=== PATIENT | male | born 1980 | race Caucasian/White ===

== ENCOUNTER 2017-10-23 13:03 | Inpatient (IN) | payer OTHER ==
[2017-10-23 13:28] VITALS: BMI 29.5
--- NOTE | 2017-10-23 14:31 | PDOC ---
History of Present Illness - General Chief Complaint: Alcohol intoxication Stated Complaint: INTOX Time Seen by Provider: 10/23/17 14:04 History Source: Patient Exam Limitations: Intoxication (Pt reports acute EtOH abuse.) - History of Present Illness Initial Comments: 37 y/o male presenting to [facility] ER complaining of abdominal pain and requesting detox for EtOH abuse. Abdominal pain is localized to RUQ, LUQ, and epigastric region. It is acute on chronic for the past four weeks without change. Chest pain that is constant and unchanged for the past several years. Pt endorses hematemesis and rectal bleeding during this period. Believes he may have passed out once yesterday while on the street. Long history of EtOH abuse with >10 beers per day, everyday. Denies tobacco or illicit drug use. Was evaluated at [facility] ER and discharged; pt unable to recall workup or results. Pt endorses drinking approx. 6 beers this morning prior to arrival. On secondary interview, pt reports active suicidal ideation with access and plan to use firearms. States he became depressed 4-5 years ago after both of his brothers from EtOH abuse. Further depressed mood in the past few days after pts girlfriend ended the relationship after cheating. PCP: None Medical Hx: - Pt denies past medical history or active prescription medications. Surgical Hx: - Pt denies past surgical history. Past History - Past Medical History Allergies/Adverse Reactions: Allergies Allergy/AdvReac Type Severity Reaction Status Date / Time No Known Allergies Allergy Verified 10/23/17 13:29 Home Medications: Ambulatory Orders NK [No Known Home Medication] 10/23/17 COPD: No - Suicide/Smoking/Psychosocial Hx Smoking History: Unknown if ever smoked Hx Alcohol Use: Yes (daily) Substance Use Type: Alcohol Review of Systems - Review of Systems Able to Perform ROS?: Yes Is the patient limited German proficient: No Constitutional: No: Chills, Diaphoresis, Fever HEENTM: No: Recent change in vision, Difficulty Swallowing Respiratory: No: Shortness of Breath Cardiac (ROS): Yes: See HPI, Chest Pain (Chronic left sided pain for 5 years), Syncope. No: Lightheadedness, Palpitations ABD/GI: Yes: See HPI, Rectal Bleeding, Vomiting, Abdominal cramping. No: Constipated, Diarrhea, Difficulty Swallowing : No: Burning, Dysuria, Flank Pain, Hematuria Musculoskeletal: No: Back Pain Integumentary: Yes: Bruising Psychiatric: Yes: Depression, Stressors Hematologic/Lymphatic: Yes: Easy Bruising. No: Easy Bleeding *Physical Exam - Vital Signs Last Vital Signs Temp Pulse Resp BP Pulse Ox 97.9 F 93 H 18 125/83 98 10/23/17 13:27 10/23/17 13:27 10/23/17 13:27 10/23/17 13:10/23/17 13:27 - Physical Exam Comments: Constitutional: Well-developed, well-nourished, non-toxic, obese male in no acute life threat. Found sitting upright in hospital chair. Alert and oriented x4. Answered questions with occasional circuitous answers. Speech is slurred. No bleeding on body or clothing. Head: Normocephalic. No obvious external signs of trauma. No periorbital ecchymosis or Battles sign. Eyes: PERRL. Lateral nystagmus. Sclerae white, no icterus. Conjunctiva moist and not injected. Ears: Hearing grossly intact. Nose: No nasal discharge. Mouth: Oral cavity and pharynx normal. No blood noted in cavity. No inflammation , swelling, exudate, or lesions. Neck: Supple, trachea is midline. Chest / Cardiovascular: Regular rate and regular rhythm. No murmur, rubs, clicks, or gallops. Peripheral pulses: Radial pulses full. No chest wall tenderness to palpation. Respiratory: Breathing unlabored. Equal chest rise and fall. Clear to auscultation bilaterally. No stridor, no wheezing, no rhonchi. Gastrointestinal: abdomen is non-distended but tender in RUQ, LUQ, and epigastric region without rebound or guarding. Possible hepatomegaly but exam technically limited by body habitus. No pulsatile masses. No overlying skin lesions or obvious signs of trauma. Neuro: Alert and oriented. Moving all four extremities spontaneously. No asterixis. Non-tremulus. Gait normal. Skin: Warm, dry, and intact. Psych: Affect: appropriate. Mood: depressed. Pt tearful at multiple points during interview. MALE RECTAL: Stool non-bloody and non-melanotic. Hemoccult card negative. Good sphincter tone with no anal, perineal or rectal lesions. Prostate is not tender , enlarged, boggy, or nodular. RN chaperoned exam. ED Treatment Course - LABORATORY CBC & Chemistry Diagram: 10/23/17 15:36 10/23/17 15:23 Medical Decision Making - Medical Decision Making *Reviewed nursing notes and prior visit documentation. 37 y/o male complaining of EtOH intoxication, abdominal pain, and acute SI. Reported hematemesis and rectal bleeding in setting of termination clerk EtOH abuse. Afebrile. Vitals unremarkable for hypotension or tachycardia. Physical exam as described. Suspect possible hepatic cirrhosis versus hepatitis versus esophageal varices versus anika ray tear versus gastritis. Low suspicion for ACS. Will obtain CBC, CMP, Troponin, EKG, CXR, Alcohol, ethylene glycol, and hemoccult card. Ordered protonix for symptom relief. Pt placed on 1 to 1 observation for acute SI. EKG: Sinus rhythm at a ventricular rate of 88 bpm. Normal axis. Normal intervals. No ST segment elevation or depression. No hyperacute T waves. No pathologic Q waves. Alcohol level: 340 CBC revealed H/H elevated to 17.9/51. Suspect secondary to dehydration. Will administer NS IVFB. CMP revealed no electrolyte derangement and mildly elevated LFTs (not 2:1 ratio) . Troponin not elevated. Hemoccult card negative. Low suspicion for active GI bleed, however story remains concerning for recent bleed given EtOH abuse history and reported symptoms. 17:53 Page sent to for Dr. Meza for admission for SI, EtOH intoxication, and possible GI bleed. 18:[address] Meza inpatient status on med-surg. Consult placed in [facility] for psychiatric consultation. *DC/Admit/Observation/Transfer Diagnosis at time of Disposition: Suicidal ideation Alcohol intoxication Qualifiers: Complication of substance-induced condition: with unspecified complication Qualified Code(s): F10.929 - Alcohol use, unspecified with intoxication, unspecified - Discharge Dispostion Condition at time of disposition: Fair Decision to Admit order: Yes - Referrals - Patient Instructions - Post Discharge Activity
[2017-10-23] MEDS ORDERED: PANTOPRAZOLE SODIUM 40 MG VIAL IVPUSH ONE (14:35)
[2017-10-23] MEDS ORDERED: PANTOPRAZOLE SODIUM 40 MG VIAL ONE (15:11)
[2017-10-23 15:55] LABS: BASO % 0.7 % (0-2.0); EOS % 0.5 % (0-4.5); HEMATOCRIT 51.5 % (35.4-49); HEMOGLOBIN 17.9 GM/dL (11.7-16.9); LYMPH % 37.5 % (8-40); MCH 30.2 pg (25.7-33.7); MCHC 34.7 g/dl (32.0-35.9); MEAN PLT VOLUME 9.3 fl (7.5-11.1); MONO % 3.5 % (3.8-10.2); NEUT % 57.8 % (42.8-82.8); PLATELET COUNT 206 K/MM3 (134-434); RBC 5.92 M/mm3 (4.00-5.60); RDW 13.3 % (11.9-15.9); WHITE BLOOD COUNT 5.4 K/mm3 (4.0-10.0)
--- NOTE | 2017-10-23 15:56 | PDOC ---
Attending Attestation - Resident Resident Name: Regino Velarde - ED Attending Attestation I have performed the following: I have examined & evaluated the patient, The case was reviewed & discussed with the resident, I agree w/resident's findings & plan, Exceptions are as noted - HPI HPI: 37 yo M history alcohol abuse presents after recent heavy alcohol use, c/o upper abd pain, stating he has been vomiting and noticed it was blood-tinged. Also states he had rectal bleeding. Limited history, patient intoxicated on presentation. During one interview he reported active SI with plan. - Physicial Exam PE: GENERAL: Awake, alert, and oriented to person and place, in no acute distress. + AOB. HEAD: No signs of trauma EYES: PERRLA, EOMI, sclera anicteric, conjunctiva clear ENT: Auricles normal inspection, hearing grossly normal, nares patent, oropharynx clear without exudates. Moist mucosa NECK: Normal ROM, supple, no lymphadenopathy, JVD, or masses LUNGS: Breath sounds equal, clear to auscultation bilaterally. No wheezes, and no crackles HEART: Regular rate and rhythm, normal S1 and S2, no murmurs, rubs or gallops ABDOMEN: Soft, nontender, normoactive bowel sounds. No guarding, no rebound. No masses EXTREMITIES: Normal range of motion, no edema. No clubbing or cyanosis. No cords, erythema, or tenderness NEUROLOGICAL: Cranial nerves II through XII grossly intact. Normal speech. Motor and sensation intact. Gait not tested due to intoxication. SKIN: Warm, Dry, normal turgor, no rashes or lesions noted. - Medical Decision Making Pt with alcohol intox, stating he had recent GI bleeding and has active SI. Stool occult blood test is negative, hemoglobin wnl. Will place on obs for reported SI as well as report of GI bleed, will monitor.
[2017-10-23 16:08] LABS: ALBUMIN 4.5 g/dl (3.4-5.0); ALK PHOS 115 U/L (45-117); ANION GAP 11 MMOL/L (8-16); BILIRUBIN,TOTAL 0.4 mg/dL (0.2-1.0); BLOOD UREA NITROGEN 10 mg/dL (7-18); CHLORIDE 107 mmol/L (98-107); CO2 24 mmol/L (21-32); CREATININE 0.8 mg/dL (0.7-1.3); GLUCOSE,RANDOM 120 mg/dL (74-106); POTASSIUM 4.1 mmol/L (3.5-5.1); SGOT/AST 67 U/L (15-37); SGPT/ALT 86 U/L (12-78); SODIUM 142 mmol/L (136-145); TOT PROT 8.6 g/dl (6.4-8.2)
[2017-10-23] MEDS ORDERED: LACTATED RINGERS SOLUTION 1000 ML INFUS.BAG IV STA (17:54)
--- NOTE | 2017-10-23 19:11 | HP ---
Admitting History and Physical - Primary Care Physician PCP: Yolanda Meza - Admission History of Present Illness: 37 y/o male presenting to [facility] ER complaining of abdominal pain and requesting detox for EtOH abuse. Abdominal pain is localized to RUQ, LUQ, and epigastric region. It is acute on chronic for the past four weeks without change. Chest pain that is constant and unchanged for the past several years. Pt endorses hematemesis and rectal bleeding during this period. Believes he may have passed out once yesterday while on the street. Long history of EtOH abuse with >10 beers per day, everyday. Denies tobacco or illicit drug use. Was evaluated at [facility] ER and discharged; pt unable to recall workup or results. - Smoking History Smoking history: Unknown if ever smoked - Alcohol/Substance Use Hx Alcohol Use: Yes (daily) Home Medications - Allergies Allergies/Adverse Reactions: Allergies Allergy/AdvReac Type Severity Reaction Status Date / Time No Known Allergies Allergy Verified 10/23/17 13:29 - Home Medications Home Medications: Ambulatory Orders NK [No Known Home Medication] 10/23/17 Physical Examination Vital Signs: Vital Signs Temperature 97.9 F 10/23/17 13:27 Pulse Rate 93 H 10/23/17 13:27 Respiratory Rate 18 10/23/17 13:27 Blood Pressure 125/83 10/23/17 13:27 O2 Sat by Pulse Oximetry (%) 98 10/23/17 13:27 Constitutional: Yes: Anxious HENT: Yes: Atraumatic Neck: Yes: Supple Cardiovascular: Yes: Regular Rate and Rhythm Respiratory: Yes: CTA Bilaterally Gastrointestinal: Yes: Normal Bowel Sounds Extremities: Yes: WNL Neurological: Yes: Alert, Oriented Labs: CBC, BMP 10/23/17 15:36 10/23/17 15:23 Problem List - Problems (1) Alcohol intoxication Assessment/Plan: on librium protocol Code(s): F10.929 - ALCOHOL USE, UNSPECIFIED WITH INTOXICATION, UNSPECIFIED Qualifiers: Complication of substance-induced condition: with unspecified complication Qualified Code(s): F10.929 - Alcohol use, unspecified with intoxication, unspecified (2) Suicidal ideation Assessment/Plan: cleared by psych was on 1:1 Code(s): R45.851 - SUICIDAL IDEATIONS Assessment/Plan Laboratory Tests 10/23/17 10/23/17 10/23/17 15:23 15:36 15:36 WBC 5.4 RBC 5.92 H Hgb 17.9 H Hct 51.5 H MCV 87.0 MCH 30.2 MCHC 34.7 RDW 13.3 Plt Count 206 MPV 9.3 Absolute Neuts (auto) 3.1 Neutrophils % 57.8 Lymphocytes % 37.5 Monocytes % 3.5 L Eosinophils % 0.5 Basophils % 0.7 Nucleated RBC % 0 Sodium 142 Potassium 4.1 Chloride 107 Carbon Dioxide 24 Anion Gap 11 BUN 10 Creatinine 0.8 Creat Clearance w eGFR > 60 Random Glucose 120 H Calcium 9.0 Total Bilirubin 0.4 AST 67 H ALT 86 H Alkaline Phosphatase 115 Troponin I Total Protein 8.6 H Albumin 4.5 Stool Occult Blood Negative Alcohol, Quantitative 10/23/17 15:36 WBC RBC Hgb Hct MCV MCH MCHC RDW Plt Count MPV Absolute Neuts (auto) Neutrophils % Lymphocytes % Monocytes % Eosinophils % Basophils % Nucleated RBC % Sodium Potassium Chloride Carbon Dioxide Anion Gap BUN Creatinine Creat Clearance w eGFR Random Glucose Calcium Total Bilirubin AST ALT Alkaline Phosphatase Troponin I < 0.02 Total Protein Albumin Stool Occult Blood Alcohol, Quantitative 340.08 H* Active Medications Generic Name Dose Route Start Last Admin Trade Name Freq PRN Reason Stop Dose Admin Chlordiazepoxide HCl 25 mg 10/25/17 11:00 10/25/17 16:39 Librium - PO 10/26/17 05:01 25 mg [id number] LUIS Administration Chlordiazepoxide HCl 15 mg 10/26/17 11:00 Librium - PO 10/27/17 05:01 [id number] LUIS Chlordiazepoxide HCl 25 mg 10/24/17 11:09 Librium - PO 10/27/17 11:08 Q4H PRN WITHDRAWAL(CONT SUBST) Chlordiazepoxide HCl 10 mg 10/27/17 11:00 Librium - PO 10/28/17 05:01 [id number] LUIS Sodium Chloride 2 spray 10/25/17 22:00 [place] Nasal [place] - NS BID LUIS
[2017-10-23] MEDS ORDERED: LORazepam 2 MG/ML SDV VIAL IVPUSH PRN (20:21)
[2017-10-23] MEDS ORDERED: LORazepam 2 MG/ML SDV VIAL ONE (20:36)
[2017-10-24] MEDS ORDERED: PNEUMOC 13-VAL CONJ-DIP CRM/PF 0.5 ML DISP.SYRIN IM ONE (07:07)
[2017-10-24 07:29] LABS: BASO % 0.3 % (0-2.0); EOS % 0.7 % (0-4.5); HEMATOCRIT 48.6 % (35.4-49); HEMOGLOBIN 16.2 GM/dL (11.7-16.9); LYMPH % 26.4 % (8-40); MCHC 33.3 g/dl (32.0-35.9); MEAN CELL VOLUME 87.1 fl (80-96); MEAN PLT VOLUME 9.2 fl (7.5-11.1); MONO % 4.6 % (3.8-10.2); PLATELET COUNT 172 K/MM3 (134-434); RBC 5.58 M/mm3 (4.00-5.60); RDW 13.5 % (11.9-15.9)
[2017-10-24 08:14] LABS: ALBUMIN 4.1 g/dl (3.4-5.0); ALK PHOS 79 U/L (45-117); ANION GAP 13 MMOL/L (8-16); BILIRUBIN,TOTAL 0.8 mg/dL (0.2-1.0); BLOOD UREA NITROGEN 9 mg/dL (7-18); CALCIUM 8.7 mg/dL (8.5-10.1); CHLORIDE 104 mmol/L (98-107); CO2 24 mmol/L (21-32); CREATININE 0.8 mg/dL (0.7-1.3); GLUCOSE,RANDOM 109 mg/dL (74-106); POTASSIUM 3.9 mmol/L (3.5-5.1); SGOT/AST 52 U/L (15-37); SGPT/ALT 74 U/L (12-78); SODIUM 141 mmol/L (136-145); TOT PROT 7.9 g/dl (6.4-8.2)
[2017-10-24] MEDS ORDERED: PNEUMOCOCCAL 23 VACCINE 0.5 ML VIAL IM ONE (10:00)
--- NOTE | 2017-10-24 11:06 | CON.PSY ---
Psychiatry Consult Chief Complaint: 37 year old male admitted with Alcihol intoxication and history og Alcohol abuse. patient apparantly told staff that he weanted to kill himself. sanjay is akert and makes good eye contact and denies any suicidal ideas or plans> i feel thatbway when I am drunk and I said that to get attention > I never tried to kill my self> I want haelp and weant to go to Rehab. patient is worried about his blood test results. Worried about his health> Obviously not intending to kill himself. Symptoms: reports: Depressed Mood - Previous Psychiatric Treatment Outpatient: None Inpatient: None - Previous Substance Abuse Treatment Outpatient: None Inpatient: None - Current Medications Current Medications: Active Medications Lorazepam (Ativan Injection -) 1 mg IVPUSH DAILY PRN PRN Reason: ANXIETY Stop: 10/24/17 20:20 Last Admin: 10/23/17 20:40 Dose: 1 mg - Allergies Allergies: Allergies Allergy/AdvReac Type Severity Reaction Status Date / Time No Known Allergies Allergy Verified 10/23/17 13:29 - Current Living Status Usual Living Arrangement: With Significant Other - Current Mental Status Evaluation Appearance: Disheveled Attitude: Cooperative - Affect Affect: Constrictive Appropriateness: Appropriate to Content - Mood Mood: Anxious - Speech/Language Expressive: Coherent - Psychomotor Activity Psychomotor Activity: Hyperactive - Thought Process Thought Process: Intact - Thought Content Delusions: Absent - Self Perception Self Perception: No Impairment - Cognition Attention: Alert Orientation: Time Memory, Immediate Recall: Intact Memory, Short Term: 3/3 Memory, Remote with Promptin/3 - Concentration Serial Sevens Intact: No Simple Calculations Intact: Yes - Abstraction Proverb Interpretation: Intact Judgement: Minimally Impaired - Insight Insight: Impaired - Impulse Control Impulse Control: Minimally Impaired - Suicidal Ideation Suicidal Ideation: No - Homicidal Ideation Homicidal Ideation: No Assessment/Plan 1) Patient is not suicidal and d/c. 2) D/C 1:1. 3) DEtox 4) Patient is willing to go to a rehab.
[2017-10-24] MEDS ORDERED: chlordiazePOXIDE HCL 25 MG CAPSULE PO PRN (11:09)
[2017-10-24] MEDS: chlordiazePOXIDE HCL 25 MG CAPSULE PO SCH ×3 (12:19→22:12)
--- NOTE | 2017-10-24 16:01 | CONSULT ---
Consult Detox [facility] Reason for Current Admission/Consult: alcohol use - History History of Present Illness: Pt states he was drinking heavily from age [age]. Stopped for about 10 years and restarted drinking when his brother a few years ago- usually drinks a few 24 ounces of beer a day. For the last 7 days- pt states he has been binge drinking- all day and night- about 10--24 ounces of beer. Pt lives with his sister in [place] but works in a [employer] in [employer]. Pt denies suicidal thoughts- says never been suicidal , thinks he was intoxicated when he expressed self injury. No h/o of seizures or DT's. Pt states he feels fine on librium protocol. - History Source History Provided By: Patient Limitations to Obtaining History: No Limitations - Alcohol/Substance Use Hx Alcohol Use: Yes (daily) CIWA Score - CIWA Score Nausea/Vomitin-No Nausea/No Vomiting Muscle Tremors: 1-None Visible, but [place] Anxiety: 1-Mildly Anxious Agitation: 0-Normal Activity Paroxysmal Sweats: No Perspiration Orientation: 0-Oriented Tacttile Disturbances: 0-None Auditory Disturbances: 0-None Visual Disturbances: 0-None Headache: 0-None Present CIWA-Ar Total Score: 2 Assessment Plan - Plan Plan: Pt agreeable to detox- but does not want to miss work. Wants to go home. Pt also expressed concern as he does not have health insurance to pay for his hospital stay. Pt would like to get his personal belongings. Pt denies suicidal thought/ideations. d/w pt at length about [facility]: detox and rehab. Also d/w pt options for medications assisted treatment for alcohol and educational resources. Please call me if I can be of further assistance: [phone]. - Medication Detox Regimen/Protocol: Librium
--- NOTE | 2017-10-24 17:16 | EKG ---
Test Reason : Blood Pressure : / mmHG Vent. Rate : 088 BPM Atrial Rate : 088 BPM P-R Int : 176 ms QRS Dur : 092 ms QT Int : 354 ms P-R-T Axes : 055 049 042 degrees QTc Int : 428 ms NORMAL SINUS RHYTHM NORMAL ECG NO PREVIOUS ECGS AVAILABLE Confirmed by MD JG, YUNIOR ([id number]) on 10/24/2017 5:16:16 PM Referred By: Confirmed By:YUNIOR GREGORIO MD
--- NOTE | 2017-10-24 18:31 | PN ---
Progress Note, Physician - Current Medication List Current Medications: Active Medications Chlordiazepoxide HCl (Librium -) 50 mg PO [id number] LUIS Stop: 10/25/17 05:01 Last Admin: 10/24/17 17:10 Dose: 50 mg Chlordiazepoxide HCl (Librium -) 25 mg PO [id number] LUIS Stop: 10/26/17 05:01 Chlordiazepoxide HCl (Librium -) 15 mg PO [id number] LUIS Stop: 10/27/17 05:01 Chlordiazepoxide HCl (Librium -) 25 mg PO Q4H PRN PRN Reason: WITHDRAWAL(CONT SUBST) Stop: 10/27/17 11:08 Chlordiazepoxide HCl (Librium -) 10 mg PO [id number] LUIS Stop: 10/28/17 05:01 Lorazepam (Ativan Injection -) 1 mg IVPUSH DAILY PRN PRN Reason: ANXIETY Stop: 10/24/17 20:20 Last Admin: 10/23/17 20:40 Dose: 1 mg - Objective Vital Signs: Vital Signs Temperature 98.5 F 10/24/17 14:49 Pulse Rate 112 H 10/24/17 14:49 Respiratory Rate 20 10/24/17 14:49 Blood Pressure 146/84 10/24/17 14:49 O2 Sat by Pulse Oximetry (%) 96 10/24/17 11:40 Constitutional: Yes: No Distress HENT: Yes: Atraumatic Neck: Yes: Supple Cardiovascular: Yes: Regular Rate and Rhythm Respiratory: Yes: CTA Bilaterally Gastrointestinal: Yes: Normal Bowel Sounds Extremities: Yes: WNL Edema: No Peripheral Pulses WNL: Yes Neurological: Yes: Alert, Oriented Labs: CBC, BMP 10/24/17 06:00 10/24/17 06:00 Problem List - Problems (1) Alcohol intoxication Assessment/Plan: on librium protocol Code(s): F10.929 - ALCOHOL USE, UNSPECIFIED WITH INTOXICATION, UNSPECIFIED Qualifiers: Complication of substance-induced condition: with unspecified complication Qualified Code(s): F10.929 - Alcohol use, unspecified with intoxication, unspecified (2) Suicidal ideation Assessment/Plan: cleared by psych Code(s): R45.851 - SUICIDAL IDEATIONS
[2017-10-25] MEDS: chlordiazePOXIDE HCL 25 MG CAPSULE PO SCH ×4 (05:44→22:34)
--- NOTE | 2017-10-25 19:26 | PN ---
Progress Note, Physician - Current Medication List Current Medications: Active Medications Chlordiazepoxide HCl (Librium -) 25 mg PO [id number] LUIS Stop: 10/26/17 05:01 Last Admin: 10/25/17 16:39 Dose: 25 mg Chlordiazepoxide HCl (Librium -) 15 mg PO [id number] LUIS Stop: 10/27/17 05:01 Chlordiazepoxide HCl (Librium -) 25 mg PO Q4H PRN PRN Reason: WITHDRAWAL(CONT SUBST) Stop: 10/27/17 11:08 Chlordiazepoxide HCl (Librium -) 10 mg PO [id number] LUIS Stop: 10/28/17 05:01 - Objective Vital Signs: Vital Signs Temperature 98.5 F 10/25/17 18:58 Pulse Rate 90 10/25/17 18:58 Respiratory Rate 18 10/25/17 18:58 Blood Pressure 134/77 10/25/17 18:58 O2 Sat by Pulse Oximetry (%) 99 10/25/17 09:00 Constitutional: Yes: No Distress HENT: Yes: Atraumatic Neck: Yes: Supple Cardiovascular: Yes: Regular Rate and Rhythm Respiratory: Yes: CTA Bilaterally Gastrointestinal: Yes: Normal Bowel Sounds Extremities: Yes: WNL Edema: No Peripheral Pulses WNL: Yes Neurological: Yes: Alert, Oriented Labs: CBC, BMP 10/24/17 06:00 10/24/17 06:00 Problem List - Problems (1) Alcohol intoxication Assessment/Plan: on librium protocol Code(s): F10.929 - ALCOHOL USE, UNSPECIFIED WITH INTOXICATION, UNSPECIFIED Qualifiers: Complication of substance-induced condition: with unspecified complication Qualified Code(s): F10.929 - Alcohol use, unspecified with intoxication, unspecified (2) Suicidal ideation Assessment/Plan: cleared by psych Code(s): R45.851 - SUICIDAL IDEATIONS
[2017-10-25] MEDS: SODIUM CHLORIDE NASAL SPRAY 44 ML BOTTLE NS SCH (22:34)
[2017-10-26] MEDS: chlordiazePOXIDE HCL 25 MG CAPSULE PO SCH (05:47)
[2017-10-26] MEDS ORDERED: PT OWN MED DRAWER 7, Y5N ONE ×2 (05:50→22:12)
[2017-10-26] MEDS: SODIUM CHLORIDE NASAL SPRAY 44 ML BOTTLE NS SCH ×2 (09:18→22:14)
[2017-10-26] MEDS: chlordiazePOXIDE 5 MG CAPSULE PO SCH ×3 (11:17→22:15)
--- NOTE | 2017-10-26 19:04 | PN ---
Progress Note, Physician - Current Medication List Current Medications: Active Medications Chlordiazepoxide HCl (Librium -) 15 mg PO [id number] LUIS Stop: 10/27/17 05:01 Last Admin: 10/26/17 17:00 Dose: 15 mg Chlordiazepoxide HCl (Librium -) 25 mg PO Q4H PRN PRN Reason: WITHDRAWAL(CONT SUBST) Stop: 10/27/17 11:08 Chlordiazepoxide HCl (Librium -) 10 mg PO [id number] LUIS Stop: 10/28/17 05:01 Sodium Chloride ([place] Nasal [place] -) 2 spray NS BID LUIS Last Admin: 10/26/17 09:18 Dose: Not Given - Objective Vital Signs: Vital Signs Temperature 98.5 F 10/26/17 17:46 Pulse Rate 108 H 10/26/17 17:46 Respiratory Rate 18 10/26/17 17:46 Blood Pressure 133/76 10/26/17 17:46 O2 Sat by Pulse Oximetry (%) 98 10/26/17 09:00 Constitutional: Yes: No Distress HENT: Yes: Atraumatic Neck: Yes: Supple Cardiovascular: Yes: Regular Rate and Rhythm Respiratory: Yes: CTA Bilaterally Gastrointestinal: Yes: Normal Bowel Sounds Extremities: Yes: WNL Edema: No Neurological: Yes: Alert, Oriented Labs: CBC, BMP 10/24/17 06:00 10/24/17 06:00 Problem List - Problems (1) Alcohol intoxication Assessment/Plan: on librium protocol Code(s): F10.929 - ALCOHOL USE, UNSPECIFIED WITH INTOXICATION, UNSPECIFIED Qualifiers: Complication of substance-induced condition: with unspecified complication Qualified Code(s): F10.929 - Alcohol use, unspecified with intoxication, unspecified (2) Suicidal ideation Assessment/Plan: cleared by psych Code(s): R45.851 - SUICIDAL IDEATIONS
[2017-10-27] MEDS: chlordiazePOXIDE 5 MG CAPSULE PO SCH ×3 (05:35→16:08)
[2017-10-27] MEDS ORDERED: PT OWN MED DRAWER 7, Y5N ONE (09:11)
[2017-10-27] MEDS: SODIUM CHLORIDE NASAL SPRAY 44 ML BOTTLE NS SCH (10:01)
[2017-10-27 13:40] VITALS: BP 153/88; PULSE 102; TEMP 97.9
--- NOTE | 2017-10-27 17:45 | DS ---
Physical Examination Vital Signs: Vital Signs Temperature 97.9 F 10/27/17 13:39 Pulse Rate 102 H 10/27/17 13:39 Respiratory Rate 18 10/27/17 13:39 Blood Pressure 153/88 10/27/17 13:39 O2 Sat by Pulse Oximetry (%) 97 10/27/17 09:00 Constitutional: Yes: No Distress HENT: Yes: Atraumatic Neck: Yes: Supple Cardiovascular: Yes: Regular Rate and Rhythm Respiratory: Yes: CTA Bilaterally Gastrointestinal: Yes: Normal Bowel Sounds Extremities: Yes: WNL Neurological: Yes: Alert, Oriented Labs: CBC, BMP 10/24/17 06:00 10/24/17 06:00 Discharge Summary Reason For Visit: ALCOHOLIC INTOXICATION Condition: Fair - Instructions Disposition: HOME - Home Medications Comprehensive Discharge Medication List: Ambulatory Orders NK [No Known Home Medication] 10/23/17
== END 2017-10-27 17:15 | disposition home or self-care (01) | DRG 775 ==
LOC: JER 13:03 → JERBED 18:14 → J7W 21:30
PROVIDERS: ADMIT Internal Medicine; ATTEND Internal Medicine
DX: F10.120 Alcohol abuse with intoxication, uncomplicated (principal); R45.851 Suicidal ideations; Y90.8 Blood alcohol level of 240 mg/100 ml or more
CPT/HCPCS: 36415; 71046-TC-FY; 80053; 80307; 82272; 82693; 84484; 85025; 90732; 93005; 93010; 99285-25; G0009